=== PATIENT | female | born 1985 | race Caucasian/White ===

== ENCOUNTER 2018-04-13 18:01 | Emergency (ER) | payer MEDICAID ==
[~2018-04-13] VITALS: Ht 160 cm; Wt 84.0 kg
[2018-04-13] MEDS ORDERED: KETOROLAC 30 MG/1 ML ONE (19:16)
[2018-04-13] MEDS ORDERED: KETOROLAC 30 MG/1 ML IM ONE (19:30)
[2018-04-13 19:31] VITALS: BP 116/72
== END 2018-04-13 19:42 | disposition home or self-care (01) ==
LOC: ED 19:35
DX: S63.502A Unspecified sprain of left wrist, initial encounter (principal); W19.XXXA Unspecified fall, initial encounter; Y93.89 Activity, other specified; Y92.009 Unspecified place in unspecified non-institutional (private) residence as the place of occurrence of the external cause; Y99.8 Other external cause status
CPT/HCPCS: 29125; 73110; 96372; 99283; J1885